=== PATIENT | female | born 1960 | race Caucasian/White ===

== ENCOUNTER → 2018-09-21 | Outpatient (CLI) | payer BC ==
--- NOTE | 2018-09-21 16:01 | RAD ---
Two-view chest Chest wall pain Comparison July 29, 2015 FINDINGS: Heart and pulmonary vasculature appears within normal limits. The lungs are well expanded and clear. No effusion or pneumothorax is seen. IMPRESSION: Negative two-view chest exam Electronically signed by: Duarte Contreras MD (09/21/2018 3:58 PM) [facility] [place]
== END | disposition home or self-care (01) ==
LOC: PMG 08:50
PROVIDERS: ATTEND Physician Assistant Medical
DX: R07.89 Other chest pain (principal)
CPT/HCPCS: 71046

== ENCOUNTER → 2018-10-02 | Outpatient (CLI) | payer BC ==
[~2018-10-02] MED LIST: IOHEXOL 240 MG/ML 50ML VIAL. ONE; IOHEXOL 240 MG/ML 50ML VIAL. PO ONE; IOHEXOL 300 MG/ML 75 ML VIAL. IV ONE
--- NOTE | 2018-10-02 10:22 | RAD ---
Examination: CT ABDOMEN W/CONTRAST History: LUQ pain for the past 2 months Comparison/Correlation: None Findings: Axial images of the abdomen were obtained following IV and oral contrast. Sagittal and coronal reformatted images were provided. Visualized lung bases are clear. Spleen is normal. Pancreas is unremarkable. Adrenal glands and kidneys are normal. Gallbladder fossa is unremarkable. Multiple low-attenuation lesions are present throughout the liver. Largest of these measures up to 1.2 cm in diameter at the left hepatic dome. These have a density mostly atelectasis. Some of the liver lesions are too small to characterize. Spleen, pancreas, adrenal glands, and kidneys are normal. Moderate quantity of stool is noted throughout colon. No enlarged upper abdominal lymph nodes. No extraluminal gas. Bony structures are within normal limits. Impression: Low-attenuation hepatic lesions likely representing cysts. No suspicious process. Correlate with risk factors in determining need for further evaluation with MRI of the liver without and with contrast for more definitive assessment. PQRS Compliance Statement: One or more of the following individualized dose reduction techniques were utilized for this examination: 1. Automated exposure control 2. Adjustment of the mA and/or kV according to patient size 3. Use of iterative reconstruction technique Electronically signed by: Sandoval Perez MD (10/02/2018 10:19 AM) [id number]
== END | disposition home or self-care (01) ==
LOC: CT 08:04
PROVIDERS: ATTEND Physician Assistant Medical
DX: K76.89 Other specified diseases of liver (principal)
CPT/HCPCS: 74160; Q9966; Q9967